=== PATIENT | female | born 1980 | race Caucasian/White ===

== ENCOUNTER 2020-12-04 20:19 | Emergency (ER) | payer OTHER ==
[2020-12-04 20:39] VITALS: BMI 33.6
[2020-12-04 21:50] VITALS: BP 114/70; PULSE 84; TEMP 98.2
== END 2020-12-04 22:35 | disposition home or self-care (01) ==
LOC: JER 20:19
DX: M25.552 Pain in left hip (principal); Z3A.30 30 weeks gestation of pregnancy
CPT/HCPCS: 99281-25

== ENCOUNTER 2021-01-25 08:05 | Inpatient (IN) | payer OTHER ==
[2021-01-25] MEDS ORDERED: CITRIC ACID/SODIUM CITRATE 30 ML UNIT-DOSE CUP PO ONE (08:20)
[2021-01-25] MEDS: ELECTROLYTE-148 SOLN 1,000 ML IV SCH (08:30)
[2021-01-25 09:24] VITALS: BMI 33.4
[2021-01-25] MEDS ORDERED: morphine SULFATE/PF 0.5 MG/ML (2cc Syringe - QUVA) EP ONE (09:41)
[2021-01-25] MEDS ORDERED: ONDANSETRON 4 MG/2 ML VIAL IVPUSH PRN (09:41)
[2021-01-25] MEDS ORDERED: morphine SULFATE/PF 0.5 MG/ML (2cc Syringe - QUVA) ONE (10:26)
[2021-01-25] MEDS ORDERED: ceFAZolin SODIUM 1 GM VIAL ONE (10:27)
[2021-01-25] MEDS ORDERED: CLINDAMYCIN PHOSPHATE 600 MG/4 ML VIAL ONE (10:47)
[2021-01-25] MEDS ORDERED: OXYTOCIN 10 UNITS/ML VIAL ONE (11:03)
[2021-01-25] MEDS ORDERED: ONDANSETRON 4 MG/2 ML VIAL IVPB PRN (11:54)
[2021-01-25] MEDS ORDERED: IBUPROFEN 800 MG/8 ML IJ IVPB PRN (11:54)
[2021-01-25] MEDS ORDERED: SENNOSIDES/DOCUSATE COMBO (SENNA PLUS) TABLET (UD) PO PRN (11:54)
[2021-01-25] MEDS: OXYTOCIN 20 UNITS in 0.9% NS 20 UNIT/1,000 ML INFUS.BAG IV SCH (12:30)
[2021-01-25] MEDS ORDERED: OXYTOCIN 20 UNITS in 0.9% NS 20 UNIT/1,000 ML INFUS.BAG IV ONE (12:34)
[2021-01-25] MEDS ORDERED: ACETAMINOPHEN INJECTION 100 ML IVPB ONE (12:42)
[2021-01-25] MEDS: ACETAMINOPHEN 1000 MG/100 ML VIAL (NON FORMULARY) IVPB PRN (12:55)
[2021-01-25] MEDS: CLINDAMYCIN 900 MG PREMIX IVPB 900 MG/50 ML BAG IVPB SCH (19:52)
[2021-01-26] MEDS: CLINDAMYCIN 900 MG PREMIX IVPB 900 MG/50 ML BAG IVPB SCH (03:45)
[2021-01-26] MEDS: ACETAMINOPHEN 1000 MG/100 ML VIAL (NON FORMULARY) IVPB PRN (04:02)
[2021-01-26 08:40] LABS: BASO % 0.2 % (0-2.0); EOS % 0.9 % (0-4.5); HEMATOCRIT 35.1 % (32.4-45.2); LYMPH % 17.9 % (8-40); MCH 31.4 pg (25.7-33.7); MCHC 34.2 g/dl (32.0-36.0); MEAN CELL VOLUME 91.8 fl (80-96); MEAN PLT VOLUME 9.6 fl (7.5-11.1); MONO % 8.3 % (3.8-10.2); NEUT % 72.7 % (42.8-82.8); PLATELET COUNT 117 10^3/uL (134-434); RBC 3.82 M/mm3 (3.60-5.2); RDW 16.6 % (11.6-15.6); WHITE BLOOD COUNT 6.4 K/mm3 (4.0-10.0)
[2021-01-26] MEDS: ELECTROLYTE-148 SOLN 1,000 ML IV SCH ×2 (09:53→17:07)
[2021-01-26] MEDS: ENOXAPARIN NA (PORCINE) 40 MG/0.4 ML DISP.SYRIN SQ SCH (09:54)
[2021-01-26] MEDS ORDERED: BISACODYL 10 MG SUPP.RECT RC PRN (11:54)
[2021-01-26] MEDS: OXYTOCIN 20 UNITS in 0.9% NS 20 UNIT/1,000 ML INFUS.BAG IV SCH (13:02)
[2021-01-26] MEDS: oxyCODONE HCL 5 MG TABLET PO PRN ×2 (13:15→19:36)
[2021-01-26] MEDS: SIMETHICONE 80 MG TAB.CHEW (FP) PO PRN ×2 (19:36→23:35)
[2021-01-26] MEDS: IBUPROFEN 600 MG TABLET (FP) PO PRN ×2 (19:37→23:36)
[2021-01-26] MEDS: ACETAMINOPHEN 325 MG TABLET (FP) PO PRN (19:38)
[2021-01-26] MEDS: diphenhydrAMINE HCL 25 MG CAPSULE (FP) PO SCH (21:06)
[2021-01-27] MEDS: oxyCODONE HCL 5 MG TABLET PO PRN (03:46)
[2021-01-27] MEDS: SIMETHICONE 80 MG TAB.CHEW (FP) PO PRN ×2 (03:46→08:57)
[2021-01-27] MEDS: ACETAMINOPHEN 325 MG TABLET (FP) PO PRN ×2 (03:47→08:56)
[2021-01-27] MEDS: IBUPROFEN 600 MG TABLET (FP) PO PRN ×2 (03:47→08:56)
[2021-01-27 09:39] VITALS: BP 112/77; PULSE 84; TEMP 98.4
[2021-01-27] MEDS: ENOXAPARIN NA (PORCINE) 40 MG/0.4 ML DISP.SYRIN SQ SCH (10:40)
[2021-01-27] MEDS: diphenhydrAMINE HCL 25 MG CAPSULE (FP) PO SCH (10:40)
== END 2021-01-27 10:55 | disposition home or self-care (01) | DRG 787 ==
LOC: JLDR 08:05 → J3W 13:05
PROVIDERS: ADMIT Specialist; ATTEND Specialist
PROC: 10D00Z1 Extraction of Products of Conception, Low, Open Approach (ICD-10-PCS; principal; 2021-01-25)
DX: O99.113 Other diseases of the blood and blood-forming organs and certain disorders involving the immune mechanism complicating pregnancy, third trimester (principal); D68.61 Antiphospholipid syndrome; O99.891 Other specified diseases and conditions complicating pregnancy; M32.9 Systemic lupus erythematosus, unspecified; O99.284 Endocrine, nutritional and metabolic diseases complicating childbirth; E03.9 Hypothyroidism, unspecified; O09.813 Supervision of pregnancy resulting from assisted reproductive technology, third trimester; O69.81X0 Labor and delivery complicated by cord around neck, without compression, not applicable or unspecified; O14.94 Unspecified pre-eclampsia, complicating childbirth; Z3A.37 37 weeks gestation of pregnancy; Z37.0 Single live birth
CPT/HCPCS: 36415; 85025; 85461; 86999; 88307-TC; J0131

== ENCOUNTER 2023-04-20 10:09 | Emergency (ER) | payer OTHER ==
[2023-04-20 10:17] VITALS: RESP 17; BMI 35.8
[2023-04-20] MEDS ORDERED: SODIUM CHLORIDE 0.9% 500 ML INFUS.BAG IV ONE (11:36)
[2023-04-20 12:26] LABS: BASO % 0.3 % (0-2.0); EOS % 1.2 % (0-4.5); LYMPH % 18.8 % (8-40); MCH 31.3 pg (25.7-33.7); MCHC 35.8 g/dl (32.0-36.0); MEAN CELL VOLUME 87.5 fl (80-96); MEAN PLT VOLUME 9.8 fl (7.5-11.1); MONO % 13.6 % (3.8-10.2); NEUT % 66.1 % (42.8-82.8); PLATELET COUNT 134 10^3/uL (134-434); RBC 4.46 M/mm3 (3.60-5.2); RDW 14.8 % (11.6-15.6); WHITE BLOOD COUNT 4.8 K/mm3 (4.0-10.0)
[2023-04-20 12:43] LABS: POTASSIUM 3.6 mmol/L (3.5-5.1)
[2023-04-20 12:44] LABS: CALCIUM 8.5 mg/dL (8.5-10.1)
[2023-04-20 12:45] LABS: ALBUMIN 2.6 g/dl (3.4-5.0); BLOOD UREA NITROGEN 6.8 mg/dL (7-18)
[2023-04-20 12:48] LABS: CREATININE 0.7 mg/dL (0.55-1.3)
[2023-04-20 12:50] LABS: BILIRUBIN,TOTAL 0.6 mg/dL (0.2-1); TOT PROT 6.5 g/dl (6.4-8.2)
[2023-04-20 12:52] LABS: URINE APPEARANCE CLEAR; URINE BILIRUBIN NEGATIVE (NEGATIVE); URINE COLOR YELLOW; URINE GLUCOSE (UA) NEGATIVE (NEGATIVE); URINE KETONE NEGATIVE (NEGATIVE); URINE LEUK ESTERASE NEGATIVE (NEGATIVE); URINE NITRITE NEGATIVE (NEGATIVE); URINE PROTEIN NEGATIVE (NEGATIVE); URINE UROBILINOGEN 0.2 mg/dL (0.2-1.0)
[2023-04-20 16:05] VITALS: BP 120/76; PULSE 66; TEMP 98
== END 2023-04-20 16:51 | disposition home or self-care (01) ==
LOC: JER 10:09
DX: O99.613 Diseases of the digestive system complicating pregnancy, third trimester (principal); R19.7 Diarrhea, unspecified; Z3A.34 34 weeks gestation of pregnancy; O26.893 Other specified pregnancy related conditions, third trimester; R10.10 Upper abdominal pain, unspecified; R11.0 Nausea; Z20.822 Contact with and (suspected) exposure to COVID-19
CPT/HCPCS: 0241U-QW; 36415; 80053; 81003; 83690; 85025; 87086; 99283-25

== ENCOUNTER 2023-05-13 06:15 | Inpatient (IN) | payer OTHER ==
[2023-05-13] MEDS ORDERED: CITRIC ACID/SODIUM CITRATE 30 ML UNIT-DOSE CUP PO ONE (06:26)
[2023-05-13 06:57] VITALS: BMI 32.5
[2023-05-13] MEDS: ELECTROLYTE-148 SOLN 1,000 ML IV SCH (07:34)
[2023-05-13] MEDS ORDERED: OXYTOCIN 30 UNITS in 0.9% NS 30 UNIT/500 ML INFUS.BAG IVPB ONE (07:37)
[2023-05-13] MEDS ORDERED: PHENYLEPHRINE HCL 10 MG/1 ML SINGLE DOSE VIAL ONE (07:40)
[2023-05-13] MEDS ORDERED: FENTANYL CITRATE/PF 50 MCG/ML VIAL ONE (07:40)
[2023-05-13] MEDS ORDERED: KETOROLAC TROMETHAMINE 30 MG/1 ML VIAL ONE (07:40)
[2023-05-13] MEDS ORDERED: ePHEDrine SULFATE 50 MG/1 ML AMPULE ONE (07:40)
[2023-05-13] MEDS ORDERED: morphine SULFATE/PF 1 MG/2 ML (2cc Syringe - QUVA) ONE (07:40)
[2023-05-13] MEDS ORDERED: SODIUM CHLORIDE 0.9% P/F 10 ML VIAL IJ ONE (07:40)
[2023-05-13] MEDS ORDERED: ONDANSETRON 4 MG/2 ML VIAL ONE (07:40)
[2023-05-13] MEDS ORDERED: SUCCINYLCHOLINE CHLORIDE 200 MG/10 ML SYRINGE ONE (07:41)
[2023-05-13] MEDS ORDERED: CLINDAMYCIN PHOSPHATE 600 MG/4 ML VIAL ONE (08:10)
[2023-05-13] MEDS ORDERED: TRIAMCINOLONE ACET 40MG/1ML VIAL IM ONE (08:30)
[2023-05-13] MEDS ORDERED: OXYTOCIN 10 UNITS/ML VIAL ONE (08:40)
[2023-05-13] MEDS ORDERED: ONDANSETRON 4 MG/2 ML VIAL IVPUSH PRN (09:48)
[2023-05-13] MEDS ORDERED: morphine SULFATE/PF 1 MG/2 ML (2cc Syringe - QUVA) IT ONE (09:48)
[2023-05-13] MEDS ORDERED: OXYTOCIN 20 UNITS in 0.9% NS 20 UNIT/1,000 ML INFUS.BAG IV ONE (09:48)
[2023-05-13] MEDS ORDERED: ACETAMINOPHEN 1000 MG/100 ML BAG IVPB PRN (10:00)
[2023-05-13] MEDS ORDERED: ENOXAPARIN NA (PORCINE) 40 MG/0.4 ML DISP.SYRIN SQ SCH (10:00)
[2023-05-13] MEDS ORDERED: ONDANSETRON 4 MG/2 ML VIAL IVPB PRN (10:00)
[2023-05-13] MEDS ORDERED: IBUPROFEN 800 MG/8 ML IJ IVPB PRN (10:00)
[2023-05-13] MEDS: OXYTOCIN 20 UNITS in 0.9% NS 20 UNIT/1,000 ML INFUS.BAG IV SCH ×2 (10:54→18:06)
[2023-05-13] MEDS ORDERED: CLINDAMYCIN 900 MG PREMIX IVPB 900 MG/50 ML BAG IVPB ONE (16:00)
[2023-05-13] MEDS: SIMETHICONE 80 MG TAB.CHEW (FP) PO PRN (23:13)
[2023-05-13] MEDS: SENNOSIDES/DOCUSATE COMBO (SENNA PLUS) TABLET (UD) PO SCH (23:13)
[2023-05-14] MEDS: SENNOSIDES/DOCUSATE COMBO (SENNA PLUS) TABLET (UD) PO SCH ×2 (00:55→21:10)
[2023-05-14] MEDS: LEVOTHYROXINE NA 75 MCG TABLET (FP) PO SCH (06:52)
[2023-05-14 08:19] LABS: BASO % 0.2 % (0-2.0); HEMATOCRIT 36.1 % (32.4-45.2); HEMOGLOBIN 12.1 GM/dL (10.7-15.3); LYMPH % 12.5 % (8-40); MCH 30.3 pg (25.7-33.7); MCHC 33.5 g/dl (32.0-36.0); MEAN CELL VOLUME 90.6 fl (80-96); MEAN PLT VOLUME 10.2 fl (7.5-11.1); MONO % 5.5 % (3.8-10.2); NEUT % 81.8 % (42.8-82.8); PLATELET COUNT 141 10^3/uL (134-434); RBC 3.98 M/mm3 (3.60-5.2); RDW 14.7 % (11.6-15.6)
[2023-05-14] MEDS: SIMETHICONE 80 MG TAB.CHEW (FP) PO PRN ×4 (09:27→23:59)
[2023-05-14] MEDS: PRENATAL VITAMINS W/ FOLIC ACID TABLET (FP) PO SCH (09:27)
[2023-05-14] MEDS: IBUPROFEN 600 MG TABLET (FP) PO PRN ×4 (09:27→23:59)
[2023-05-14] MEDS: ENOXAPARIN NA (PORCINE) 40 MG/0.4 ML DISP.SYRIN SQ SCH (09:28)
[2023-05-14] MEDS ORDERED: BISACODYL 10 MG SUPP.RECT RC PRN (10:00)
[2023-05-15] MEDS: IBUPROFEN 600 MG TABLET (FP) PO PRN ×3 (05:30→21:29)
[2023-05-15] MEDS: SIMETHICONE 80 MG TAB.CHEW (FP) PO PRN ×3 (05:30→21:29)
[2023-05-15] MEDS: oxyCODONE HCL 5 MG TABLET PO PRN ×2 (07:57→18:06)
[2023-05-15] MEDS: ENOXAPARIN NA (PORCINE) 40 MG/0.4 ML DISP.SYRIN SQ SCH (09:59)
[2023-05-15] MEDS: PRENATAL VITAMINS W/ FOLIC ACID TABLET (FP) PO SCH (09:59)
[2023-05-15] MEDS: LEVOTHYROXINE NA 75 MCG TABLET (FP) PO SCH (10:09)
[2023-05-15 11:16] LABS: BASO % 0.1 % (0-2.0); EOS % 0.1 % (0-4.5); HEMATOCRIT 37.9 % (32.4-45.2); HEMOGLOBIN 12.4 GM/dL (10.7-15.3); LYMPH % 14.8 % (8-40); MCH 29.8 pg (25.7-33.7); MCHC 32.6 g/dl (32.0-36.0); MEAN CELL VOLUME 91.4 fl (80-96); MEAN PLT VOLUME 9.7 fl (7.5-11.1); MONO % 7.8 % (3.8-10.2); NEUT % 77.2 % (42.8-82.8); PLATELET COUNT 153 10^3/uL (134-434); RBC 4.15 M/mm3 (3.60-5.2); RDW 14.9 % (11.6-15.6); WHITE BLOOD COUNT 6.7 K/mm3 (4.0-10.0)
[2023-05-15 11:35] LABS: CHLORIDE 108 mmol/L (98-107); SODIUM 137 mmol/L (136-145)
[2023-05-15 11:37] LABS: CALCIUM 8.4 mg/dL (8.5-10.1)
[2023-05-15 11:38] LABS: ALBUMIN 2.3 g/dl (3.4-5.0); ANION GAP 3 mmol/L (4-13); BLOOD UREA NITROGEN 10.2 mg/dL (7-18); CO2 27 mmol/L (21-32); GLUCOSE,RANDOM 90 mg/dL (74-106)
[2023-05-15 11:41] LABS: BILIRUBIN,DIRECT < 0.1 mg/dL (0.0-0.2); CREATININE 0.6 mg/dL (0.55-1.3); SGOT/AST 18 U/L (15-37); SGPT/ALT 19 U/L (13-61)
[2023-05-15 11:43] LABS: BILIRUBIN,TOTAL 0.2 mg/dL (0.2-1)
[2023-05-15 11:44] LABS: ALK PHOS 112 U/L (45-117)
[2023-05-15 11:45] LABS: LDH 186 U/L (84-246)
[2023-05-15] MEDS: ACETAMINOPHEN 325 MG TABLET (FP) PO PRN (14:35)
[2023-05-15] MEDS ORDERED: LABETALOL HCL 100 MG TABLET (FP) ONE (17:55)
[2023-05-15] MEDS: LABETALOL HCL 100 MG TABLET (FP) PO SCH ×2 (17:58→21:29)
[2023-05-15] MEDS: SENNOSIDES/DOCUSATE COMBO (SENNA PLUS) TABLET (UD) PO SCH (21:29)
[2023-05-16] MEDS: oxyCODONE HCL 5 MG TABLET PO PRN ×3 (01:51→22:42)
[2023-05-16] MEDS: SIMETHICONE 80 MG TAB.CHEW (FP) PO PRN ×3 (01:51→21:11)
[2023-05-16] MEDS: LEVOTHYROXINE NA 150 MCG TABLET PO SCH (06:23)
[2023-05-16] MEDS: PRENATAL VITAMINS W/ FOLIC ACID TABLET (FP) PO SCH (09:25)
[2023-05-16] MEDS: ENOXAPARIN NA (PORCINE) 40 MG/0.4 ML DISP.SYRIN SQ SCH (09:25)
[2023-05-16] MEDS: LABETALOL HCL 100 MG TABLET (FP) PO SCH (09:25)
[2023-05-16] MEDS ORDERED: NIFEdipine 10 MG CAPSULE (FP) PO ONE (11:04)
[2023-05-16] MEDS ORDERED: NIFEdipine E.R. 30 MG TABLET PO SCH (11:05)
[2023-05-16] MEDS ORDERED: NIFEdipine E.R. 30 MG TABLET PO ONE (12:15)
[2023-05-16] MEDS: ACETAMINOPHEN 325 MG TABLET (FP) PO PRN (12:30)
[2023-05-16] MEDS: ELECTROLYTE-148 SOLN 1,000 ML IV SCH ×2 (13:09→21:08)
[2023-05-16] MEDS: OXYTOCIN 20 UNITS in 0.9% NS 20 UNIT/1,000 ML INFUS.BAG IV SCH (13:10)
[2023-05-16] MEDS ORDERED: LABETALOL HCL 200 MG TABLET (FP) PO SCH ×3 (17:59→23:30)
[2023-05-16] MEDS ORDERED: LABETALOL HCL 200 MG TABLET (FP) PO ONE (18:34)
[2023-05-16] MEDS: SENNOSIDES/DOCUSATE COMBO (SENNA PLUS) TABLET (UD) PO SCH (21:11)
[2023-05-16] MEDS: ACETAMINOPHEN 500 MG TABLET (FP) PO PRN (21:11)
[2023-05-17] MEDS: ACETAMINOPHEN 500 MG TABLET (FP) PO PRN (04:40)
[2023-05-17] MEDS: LABETALOL HCL 200 MG TABLET (FP) PO SCH ×3 (05:56→22:05)
[2023-05-17] MEDS: LEVOTHYROXINE NA 150 MCG TABLET PO SCH (07:00)
[2023-05-17 08:37] LABS: BASO % 0.3 % (0-2.0); EOS % 0.5 % (0-4.5); HEMATOCRIT 37.6 % (32.4-45.2); HEMOGLOBIN 12.5 GM/dL (10.7-15.3); LYMPH % 21.2 % (8-40); MCH 30.6 pg (25.7-33.7); MCHC 33.2 g/dl (32.0-36.0); MEAN CELL VOLUME 92.1 fl (80-96); MEAN PLT VOLUME 9.1 fl (7.5-11.1); MONO % 8.8 % (3.8-10.2); NEUT % 69.2 % (42.8-82.8); PLATELET COUNT 184 10^3/uL (134-434); RBC 4.08 M/mm3 (3.60-5.2); RDW 14.7 % (11.6-15.6); WHITE BLOOD COUNT 5.8 K/mm3 (4.0-10.0)
[2023-05-17 09:12] LABS: POTASSIUM 4.3 mmol/L (3.5-5.1)
[2023-05-17 09:32] LABS: CALCIUM 8.7 mg/dL (8.5-10.1)
[2023-05-17 09:33] LABS: BLOOD UREA NITROGEN 13.2 mg/dL (7-18)
[2023-05-17 09:34] LABS: ALBUMIN 2.6 g/dl (3.4-5.0)
[2023-05-17 09:36] LABS: BILIRUBIN,DIRECT 0.1 mg/dL (0.0-0.2); CREATININE 0.6 mg/dL (0.55-1.3)
[2023-05-17 09:39] LABS: BILIRUBIN,TOTAL 0.5 mg/dL (0.2-1); TOT PROT 6.4 g/dl (6.4-8.2)
[2023-05-17] MEDS: ENOXAPARIN NA (PORCINE) 40 MG/0.4 ML DISP.SYRIN SQ SCH (09:39)
[2023-05-17] MEDS: PRENATAL VITAMINS W/ FOLIC ACID TABLET (FP) PO SCH (09:39)
[2023-05-17] MEDS ORDERED: MAGNESIUM SULFATE 20GM/500ML - 20 GM/500 ML INFUS.BAG IVPB SCH (12:30)
[2023-05-17] MEDS ORDERED: MAGNESIUM 4GM/H20 - 4 GM/100 ML IVPB IVPB SCH ×2 (12:30→12:44)
[2023-05-17] MEDS ORDERED: MAGNESIUM 4GM/H20 - 4 GM/100 ML IVPB IVPB ONE (13:33)
[2023-05-17] MEDS: LACTATED RINGERS SOLUTION 1,000 ML/1,000 ML INFUS.BAG IV SCH (13:45)
[2023-05-17] MEDS ORDERED: LABETALOL HCL 200 MG TABLET (FP) ONE ×2 (13:59→22:02)
[2023-05-17] MEDS ORDERED: MAGNESIUM SULFATE 20GM/500ML - 20 GM/500 ML INFUS.BAG ONE ×2 (14:18→23:57)
[2023-05-17] MEDS: MAGNESIUM SULFATE 20GM/500ML - 20 GM/500 ML INFUS.BAG IVPB SCH (14:25)
[2023-05-17 21:31] LABS: MAGNESIUM 5.9 mg/dL (1.8-2.4)
[2023-05-17] MEDS: SENNOSIDES/DOCUSATE COMBO (SENNA PLUS) TABLET (UD) PO SCH (22:34)
[2023-05-18 02:59] LABS: MAGNESIUM 6.6 mg/dL (1.8-2.4)
[2023-05-18] MEDS ORDERED: LABETALOL HCL 200 MG TABLET (FP) ONE ×2 (05:56→13:23)
[2023-05-18] MEDS: LABETALOL HCL 200 MG TABLET (FP) PO SCH ×2 (06:15→13:30)
[2023-05-18] MEDS: LEVOTHYROXINE NA 150 MCG TABLET PO SCH (06:16)
[2023-05-18 07:23] VITALS: RESP 18
[2023-05-18 07:59] LABS: MAGNESIUM 6.9 mg/dL (1.8-2.4)
[2023-05-18] MEDS ORDERED: PRENATAL VITAMINS W/ FOLIC ACID TABLET (FP) PO ONE (09:09)
[2023-05-18] MEDS ORDERED: NIFEdipine E.R. 30 MG TABLET PO ONE (09:09)
[2023-05-18] MEDS: PRENATAL VITAMINS W/ FOLIC ACID TABLET (FP) PO SCH (09:21)
[2023-05-18] MEDS ORDERED: NIFEdipine E.R. 30 MG TABLET PO SCH (10:00)
[2023-05-18 10:05] LABS: MAGNESIUM 6.6 mg/dL (1.8-2.4)
[2023-05-18 12:31] VITALS: TEMP 97.7
[2023-05-18] MEDS: LACTATED RINGERS SOLUTION 1,000 ML/1,000 ML INFUS.BAG IV SCH ×2 (13:45)
[2023-05-18] MEDS ORDERED: oxyCODONE HCL 5 MG TABLET ONE (14:31)
[2023-05-18] MEDS: oxyCODONE HCL 5 MG TABLET PO PRN (14:32)
[2023-05-18] MEDS: MAGNESIUM SULFATE 20GM/500ML - 20 GM/500 ML INFUS.BAG IVPB SCH ×2 (14:55)
[2023-05-18] MEDS: ENOXAPARIN NA (PORCINE) 40 MG/0.4 ML DISP.SYRIN SQ SCH (14:55)
[2023-05-18 16:12] VITALS: BP 146/75; PULSE 71
== END 2023-05-18 16:55 | disposition home or self-care (01) | DRG 788 ==
LOC: JLDR 06:15 → J3W 11:40 → JLDR 05-17 13:22
PROVIDERS: ADMIT Specialist; ATTEND Specialist
PROC: 10D00Z1 Extraction of Products of Conception, Low, Open Approach (ICD-10-PCS; principal; 2023-05-13)
DX: O34.219 Maternal care for unspecified type scar from previous cesarean delivery (principal); O14.15 Severe pre-eclampsia, complicating the puerperium; Z3A.37 37 weeks gestation of pregnancy; Z37.0 Single live birth
CPT/HCPCS: 36415; 80048; 80076; 82570; 83615; 83735; 84156; 85025; 88304-TC; 88307-TC; 94010